=== PATIENT | female | born 1970 | race Caucasian/White ===

== ENCOUNTER 2017-12-11 22:29 | Emergency (ER) | payer OTHER, MEDICARE ==
[~2017-12-11] VITALS: Ht 160 cm; Wt 63.5 kg
[2017-12-11 22:45] VITALS: BP_SYST 124
[2017-12-11] MEDS ORDERED: CYCLOBENZAPRINE HCL 10 MG TABLET (FLEXERIL) PO ONE (23:30)
[2017-12-11] MEDS ORDERED: MORPHINE 4 MG/ML INJ. SYRINGE IVP ONE (23:30)
[2017-12-12] MEDS ORDERED: SUMAtriptan SUCCINATE 6 MG/0.5 ML VIAL SUBCUT ONE (00:30)
[2017-12-12 01:03] VITALS: BP_SYST 120
== END 2017-12-12 01:03 | disposition home or self-care (01) ==
LOC: SED 22:29
DX: G89.29 Other chronic pain (principal); M54.9 Dorsalgia, unspecified; G43.909 Migraine, unspecified, not intractable, without status migrainosus; M79.7 Fibromyalgia; J45.909 Unspecified asthma, uncomplicated; F41.9 Anxiety disorder, unspecified; Z88.1 Allergy status to other antibiotic agents; Z91.041 Radiographic dye allergy status
CPT/HCPCS: 96372; 96374; 99284; J2270; J3030

== ENCOUNTER 2018-02-01 02:28 | Inpatient (IN) | payer OTHER, MEDICARE ==
[~2018-02-01] VITALS: Ht 160 cm; Wt 63.0 kg
[2018-02-01] VITALS (8 sets, daily range): BP systolic 103–129
[2018-02-01] MEDS ORDERED: DULO60CA41 PO (02:40)
[2018-02-01] MEDS ORDERED: BUTA1CAP45 PO (02:40)
[2018-02-01] MEDS ORDERED: SOM350 PO (02:40)
[2018-02-01] MEDS ORDERED: NALOXONE HCL 0.4 MG/ML AMP (NARCAN) IVP ONE ×2 (03:00→03:30)
[2018-02-01] MEDS ORDERED: NALOXONE HCL 0.4 MG/ML AMP (NARCAN) ONE (03:05)
[2018-02-01 03:13] LABS: BASOPHILS # (AUTO) 0.1 K/uL (0.0-0.2); HEMATOCRIT 35.3 % (36-48); HEMOGLOBIN 11.7 g/dL (12.0-16.0); LYMPHOCYTES # (AUTO) 0.4 K/uL (1.0-5.5); LYMPHOCYTES % (AUTO) 5.3 % (20.5-51.5); MEAN CORPUSCULAR HEMOGLOBIN 29 pg (27-31); MEAN CORPUSCULAR HGB CONC 33 % (32-36); MEAN CORPUSCULAR VOLUME 89 fL (79.0-98.0); MONOCYTES # (AUTO) 0.1 K/uL (0.0-1.0); MONOCYTES % (AUTO) 0.8 % (1.7-9.3); NEUTROPHILS # (AUTO) 6.7 K/uL (1.8-7.7); NEUTROPHILS % (AUTO) 92.9 % (40.0-70.0); PLATELET COUNT (AUTO) 357 K/uL (130-430); RED BLOOD CELL COUNT(AUTO) 3.98 MIL/uL (4.2-6.2); RED CELL DISTRIBUTION WIDTH 14.9 % (9.0-15.0); WHITE BLOOD COUNT (AUTO) 7.3 K/uL (4.8-10.8)
[2018-02-01 03:20] LABS: ANION GAP 10 (5-15); CALCIUM 8.8 mg/dL (8.4-11.0); CHLORIDE 102 mmol/L (98-107); GLUCOSE 127 mg/dL (70-99); POTASSIUM 3.6 mmol/L (3.5-5.1); SODIUM SERUM 137 mmol/L (136-145); UREA NITROGEN, BLOOD 15 mg/dL (8-21)
[2018-02-01 03:22] LABS: GFR AFRICAN AMERICAN 115 mL/min (>90)
[2018-02-01 03:27] LABS: BILIRUBIN,URINE NEGATIVE (NEGATIVE); BLOOD, URINE 2+ (NEGATIVE); CLARITY/URINE CLEAR (CLEAR); COLOR,URINE YELLOW (YELLOW); GLUCOSE,URINE NEGATIVE (NEGATIVE); KETONES,URINE TRACE (NEGATIVE); LEUKOCYTE ESTERASE ,URINE NEGATIVE (NEGATIVE); NITRITE, URINE NEGATIVE (NEGATIVE); PH,URINE 5.5 (5.0-8.0); PROTEIN URINE NEGATIVE (NEGATIVE); UROBILINOGEN,URINE 0.2 (0.2-1.0)
[2018-02-01] MEDS ORDERED: FLUMAZENIL 0.1 MG/ML IVP ONE ×2 (03:29→03:30)
[2018-02-01] MEDS ORDERED: NACL 0.9% 1,000 ML IV ONE (03:30)
[2018-02-01 03:33] LABS: ALANINE AMINOTRANSFERASE 13 U/L (12-78); ALBUMIN 3.7 g/dL (3.4-4.8); ASPARTATE AMINOTRANSFERASE 10 U/L (10-37); TOTAL BILIRUBIN 0.2 mg/dL (0.0-1.0)
[2018-02-01 03:35] LABS: ALCOHOL, BLOOD < 3 mg/dL (<10)
[2018-02-01 03:39] LABS: BARBITURATE, URINE POSITIVE (NEG <=200); BENZODIAZEPINE, URINE NEGATIVE (NEG <=150); CANNABINOID, URINE NEGATIVE (NEG <=50); COCAINE, URINE NEGATIVE (NEG <=150); METHAMPHETAMINES SCREEN,URINE NEGATIVE (NEG <=500); OPIATE, URINE NEGATIVE (NEG <=100); PHENCYCLIDINE SCREEN,URINE NEGATIVE (NEG <=25); UR TRICYCLIC ANTIDEPRESSANTS POSITIVE (NEG <=300); URINE AMPHETAMINE NEGATIVE (NEG <=500); URINE METHADONE NEGATIVE (NEG <=200); URINE OXYCODONE SCREEN NEGATIVE (NEG <=100); URINE PROPOXYPHENE SCREEN NEGATIVE (NEG <=300)
[2018-02-01 03:45] LABS: ACETAMINOPHEN < 1 ug/mL (1-30)
[2018-02-01 03:49] LABS: RBC,URINE 20-50 /HPF (0-3)
[2018-02-01 03:50] LABS: BACTERIA,URINE FEW /HPF (None Seen); WBC,URINE 0-3 /HPF (0-3)
[2018-02-01] MEDS ORDERED: KCL 20 mEq in D5/0.45NS 1000mL 1,000 ML IV SCH (09:00)
[2018-02-01] MEDS ORDERED: PREGABALIN 75 MG CAPSULE (LYRICA) PO ONE (15:00)
[2018-02-01] MEDS: KCL 20 mEq in D5NS 1000 mL 1,000 ML IV SCH (15:41)
[2018-02-01] MEDS: KETOROLAC TROMETHAMINE 15 MG VIAL IVP PRN ×2 (15:42→21:54)
[2018-02-01] MEDS: PREGABALIN 75 MG CAPSULE (LYRICA) PO SCH (20:11)
[2018-02-01] MEDS: FAMOTIDINE 20 MG TABLET PO SCH (20:11)
[2018-02-01] MEDS: DULoxetine HCL 30 MG CAPSULE.DR (CYMBALTA) PO SCH (20:11)
[2018-02-01] MEDS: ENOXAPARIN SODIUM 40 MG/0.4 ML SYRINGE SUBCUT SCH (20:12)
[2018-02-02 00:38] VITALS: BP_SYST 123
[2018-02-02] MEDS: KCL 20 mEq in D5NS 1000 mL 1,000 ML IV SCH ×2 (07:40→17:25)
[2018-02-02] MEDS: KETOROLAC TROMETHAMINE 15 MG VIAL IVP PRN ×2 (07:41→20:16)
[2018-02-02 08:00] VITALS: BP_SYST 112
[2018-02-02] MEDS: PREGABALIN 75 MG CAPSULE (LYRICA) PO SCH ×2 (08:45→20:19)
[2018-02-02] MEDS: FAMOTIDINE 20 MG TABLET PO SCH ×2 (08:45→20:20)
[2018-02-02] MEDS: DULoxetine HCL 30 MG CAPSULE.DR (CYMBALTA) PO SCH ×2 (08:46→20:19)
[2018-02-02 12:32] VITALS: BP_SYST 105
[2018-02-02] MEDS: ACETAMINOPHEN 325 MG TABLET PO PRN ×2 (12:40→16:20)
[2018-02-02] MEDS: traMADol HCL HCL 50 MG TABLET (ULTRAM) PO PRN (14:19)
[2018-02-02 16:46] VITALS: BP_SYST 110
[2018-02-02 19:20] VITALS: BP_SYST 119
[2018-02-02] MEDS: ENOXAPARIN SODIUM 40 MG/0.4 ML SYRINGE SUBCUT SCH (20:20)
[2018-02-03 00:30] VITALS: BP_SYST 106
[2018-02-03] MEDS: traMADol HCL HCL 50 MG TABLET (ULTRAM) PO PRN ×2 (02:08→15:37)
[2018-02-03] MEDS: KETOROLAC TROMETHAMINE 15 MG VIAL IVP PRN ×2 (05:23→17:24)
[2018-02-03] MEDS: KCL 20 mEq in D5NS 1000 mL 1,000 ML IV SCH ×2 (05:23→18:35)
[2018-02-03 08:00] VITALS: BP_SYST 107
[2018-02-03] MEDS: PREGABALIN 75 MG CAPSULE (LYRICA) PO SCH ×2 (08:08→20:30)
[2018-02-03] MEDS: FAMOTIDINE 20 MG TABLET PO SCH ×2 (08:08→20:31)
[2018-02-03] MEDS: DULoxetine HCL 30 MG CAPSULE.DR (CYMBALTA) PO SCH ×2 (08:09→20:30)
[2018-02-03] MEDS: CARISOPRODOL 350 MG TABLET PO PRN (09:08)
[2018-02-03 12:07] VITALS: BP_SYST 105
[2018-02-03] MEDS: ONDANSETRON HCL 4 MG/2 ML VIAL IVP PRN (16:07)
[2018-02-03 16:31] VITALS: BP_SYST 109
[2018-02-03 19:50] VITALS: BP_SYST 103
[2018-02-03] MEDS: ENOXAPARIN SODIUM 40 MG/0.4 ML SYRINGE SUBCUT SCH (20:33)
[2018-02-04] MEDS: CARISOPRODOL 350 MG TABLET PO PRN (00:22)
[2018-02-04 00:27] VITALS: BP_SYST 123
[2018-02-04] MEDS: ONDANSETRON HCL 4 MG/2 ML VIAL IVP PRN ×2 (02:12→14:59)
[2018-02-04] MEDS: KETOROLAC TROMETHAMINE 15 MG VIAL IVP PRN ×2 (02:13→09:59)
[2018-02-04] MEDS: KCL 20 mEq in D5NS 1000 mL 1,000 ML IV SCH (07:37)
[2018-02-04] MEDS: FAMOTIDINE 20 MG TABLET PO SCH (08:28)
[2018-02-04] MEDS: traMADol HCL HCL 50 MG TABLET (ULTRAM) PO PRN (08:28)
[2018-02-04] MEDS: DULoxetine HCL 30 MG CAPSULE.DR (CYMBALTA) PO SCH (08:28)
[2018-02-04] MEDS: PREGABALIN 75 MG CAPSULE (LYRICA) PO SCH (08:28)
[2018-02-04 10:32] VITALS: BP_SYST 92
[2018-02-04 12:02] VITALS: BP_SYST 121
[2018-02-04] MEDS: ACETAMINOPHEN 325 MG TABLET PO PRN (12:38)
[2018-02-04 14:25] VITALS: BP_SYST 121
[2018-02-04] MEDS ORDERED: TRAM1TAB33 PO (14:32)
[2018-02-04] MEDS ORDERED: PREG75CA PO (14:33)
[2018-02-04] MEDS ORDERED: DULO60CA41 PO (14:34)
== END 2018-02-04 15:40 | disposition home health service (06) | DRG 552 ==
LOC: SED 02:28 → SIC 08:56 → SMU 15:20
PROVIDERS: ADMIT Family Medicine; ATTEND Family Medicine
DX: M54.5 Low back pain (principal); D64.9 Anemia, unspecified; G89.4 Chronic pain syndrome; M51.36 Other intervertebral disc degeneration, lumbar region; R51 Headache; F41.9 Anxiety disorder, unspecified; J45.909 Unspecified asthma, uncomplicated; M79.7 Fibromyalgia; M25.569 Pain in unspecified knee; M25.519 Pain in unspecified shoulder; F19.10 Other psychoactive substance abuse, uncomplicated; T50.905A Adverse effect of unspecified drugs, medicaments and biological substances, initial encounter; Y92.89 Other specified places as the place of occurrence of the external cause; Z98.1 Arthrodesis status; Z88.8 Allergy status to other drugs, medicaments and biological substances; Z88.1 Allergy status to other antibiotic agents; Z91.041 Radiographic dye allergy status; Z91.013 Allergy to seafood; Z79.899 Other long term (current) drug therapy
CPT/HCPCS: 36415; 70450-TC; 80053; 80307; 81000-TC; 84484; 85025; 87081; 93005; 96361; 96374; 96375; 99285; G0480; G0481; G0482; J1650; J1885; J2310; J2405; J3490

== ENCOUNTER 2019-08-15 22:55 | Emergency (ER) | payer OTHER, BC ==
[~2019-08-15] VITALS: Ht 160 cm; Wt 67.6 kg
[~2019-08-15 22:55] MED LIST: BUTA1CAP45 PO; DULO60CA41 PO; PREG75CA PO; SOM350 PO; TRAM-350 PO
[2019-08-15 23:00] VITALS: BP_SYST 149
--- NOTE | 2019-08-15 23:00 | NUR ---
Patient to ER bed 2 to gown for evaluation. Side rails up. Report given to SETH.
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
[2019-08-16] MEDS ORDERED: MORPHINE 4 MG/ML INJ. SYRINGE IM ONE (00:15)
[2019-08-16] MEDS ORDERED: SILVER SULFADIAZINE 1%, 25 GM TOPICAL CREAM (SSD) TP ONE (01:00)
--- NOTE | 2019-08-16 01:23 | NUR ---
Patient given written and verbal discharge instructions and verbalizes understanding. ER MD WILKS discussed with patient the results and treatment provided. Patient in stable condition. ID arm band removed. IV catheter removed intact and dressing applied, no active bleeding. Rx of BACTROBAN OINT, AND NORCO given. Patient educated on pain management and to follow up with PMD. Pain Scale 2/10. Opportunity for questions provided and answered. Medication side effect fact sheet provided.
[2019-08-16 03:26] VITALS: BP_SYST 149
== END 2019-08-16 01:23 | disposition home or self-care (01) ==
LOC: SED 22:55
DX: T23.002A Burn of unspecified degree of left hand, unspecified site, initial encounter (principal); T31.0 Burns involving less than 10% of body surface; J45.909 Unspecified asthma, uncomplicated; F41.9 Anxiety disorder, unspecified; Z79.899 Other long term (current) drug therapy; Z91.013 Allergy to seafood; Z88.1 Allergy status to other antibiotic agents; Z88.6 Allergy status to analgesic agent; X18.XXXA Contact with other hot metals, initial encounter; Y93.89 Activity, other specified; Y92.89 Other specified places as the place of occurrence of the external cause; Y99.8 Other external cause status
CPT/HCPCS: 16020; 73130; 96372; 99283; J2270